=== PATIENT | male | born 1985 | race Two or more races ===

== ENCOUNTER 2021-02-14 23:41 | Emergency (ER) | payer SELFPAY ==
[~2021-02-14] VITALS: Ht 190.5 cm; Wt 117.9 kg
[2021-02-15 03:30] VITALS: BP 146/99
[2021-02-15] MEDS ORDERED: methylPREDNISolone SOD SUCC 125 MG/2 ML VL IM ONE (05:45)
[2021-02-15] MEDS ORDERED: KETOROLAC TROMETH 60MG/2ML VIAL IM ONE (05:45)
== END 2021-02-15 06:12 | disposition home or self-care (01) ==
LOC: ER 23:46
DX: H66.93 Otitis media, unspecified, bilateral (principal); E66.9 Obesity, unspecified; Z68.32 Body mass index [BMI] 32.0-32.9, adult
CPT/HCPCS: 96372; 99284; J1885; J2930

== ENCOUNTER 2021-09-22 04:33 | Emergency (ER) | payer MEDICAID ==
[~2021-09-22] VITALS: Ht 190.5 cm; Wt 112.0 kg
[2021-09-22 07:23] VITALS: BP 138/85
== END 2021-09-22 07:27 | disposition home or self-care (01) ==
LOC: ER 04:33
DX: G56.03 Carpal tunnel syndrome, bilateral upper limbs (principal)
CPT/HCPCS: 29125